=== PATIENT | female | born 1975 | race African-American/Black ===

== ENCOUNTER 2016-12-17 21:09 | Emergency (ER) | payer SELFPAY ==
[2016-12-17] MEDS ORDERED: MORPHINE SULFATE 10 MG/ML INJ IV ONE (23:12)
[2016-12-17] MEDS ORDERED: NORMAL SALINE 1000 ML 1,000 ML IV ONE (23:12)
[2016-12-17] MEDS ORDERED: ONDANSETRON HCL INJ/PF 4 MG/2 ML SDV IV ONE (23:12)
[2016-12-17] MEDS ORDERED: METOCLOPRAMIDE HCL INJ/PF 10 MG/2 ML SDV IV ONE (23:17)
[2016-12-17] MEDS ORDERED: DIPHENHYDRAMINE HCL 50 MG/ML VIAL IV ONE (23:17)
--- NOTE | 2016-12-17 23:44 | RADIOLOGY REPORT (SQ) ---
EXAM DESCRIPTION: CT HEAD WITHOUT COMPLETED DATE/TIME: 12/17/2016 11:25 pm REASON FOR STUDY: headache COMPARISON: None. TECHNIQUE: Axial images acquired through the brain without intravenous contrast. Images reviewed wi th bone, brain and subdural windows. Images stored on PACS. All CT scanners at this facility use dose modulation, iterative reconstruction, and/or weight based d osing when appropriate to reduce radiation dose to as low as reasonably achievable (ALARA). [facility]: Dose Right [facility]: CareDose [facility]: Dose Right [facility]: Teradose 4D [facility]: Stickybits RADIATION DOSE: Up-to-date CT equipment and radiation dose reduction techniques were employed. CTDIv ol: 64.6 mGy. DLP: 1163 mGy-cm. mGy. LIMITATIONS: None. FINDINGS: VENTRICLES: Normal size and contour. CEREBRUM: No masses. No hemorrhage. No midline shift. No evidence for acute infarction. Normal gra y/white matter differentiation. No areas of low density in the white matter. CEREBELLUM: No masses. No hemorrhage. No alteration of density. No evidence for acute infarction. EXTRAAXIAL SPACES: No fluid collections. No masses. ORBITS AND GLOBE: No intra- or extraconal masses. Normal contour of globe without masses. CALVARIUM: No fracture. PARANASAL SINUSES: No fluid or mucosal thickening. SOFT TISSUES: No mass or hematoma. OTHER: No other significant finding. IMPRESSION: NORMAL BRAIN CT WITHOUT CONTRAST. EVIDENCE OF ACUTE STROKE: NO. COMMENT: Quality ID # [id number]: Final reports with documentation of one or more dose reduction techniques (e.g., Automated exposure control, adjustment of the mA and/or kV according to patient size, use of iterative reconstruction technique) TECHNICAL DOCUMENTATION: JOB ID: [id number] [employer]- All Rights Reserved
--- NOTE | 2016-12-18 01:12 | ER Document Report ---
ED General - General Chief Complaint: Headache Stated Complaint: HEADACHE Time Seen by Provider: 12/17/16 23:06 Notes: Patient is a 41-year-old female presents with complaint of a headache. She woke up this morning with a headache. It has continued throughout the day. She took qdyl-bqh-prbdllk medication at home which has not helped. She has a history of some headaches but says usually not this severe. She denies any photophobia. Some nausea. No recent fevers or infections. No trauma to her head. She says the headache is located over left temporal region. No pain to the neck or back of the head. No focal weakness or numbness in extremities. No ataxia. No other complaints at this time. She is not on blood thinners. TRAVEL OUTSIDE OF THE [place] IN LAST 30 DAYS: No - Related Data Allergies/Adverse Reactions: Sulfa (Sulfonamide Antibiotics) Allergy (Verified 12/17/16 21:45) Past Medical History - Social History Smoking Status: Unknown if Ever Smoked Frequency of alcohol use: None Drug Abuse: None Family History: CAD, COPD, CVA, Hyperlipidemia, Hypertension, Malignancy. denies: Arthritis, DM, Thyroid Disfunction Patient has suicidal ideation: No Patient has homicidal ideation: No Renal/ Medical History: Reports: Hx Ovarian Cysts. Denies: Hx Peritoneal Dialysis GI Medical History: Reports: Hx Gastroesophageal Reflux Disease. Denies: Hx Colonoscopy, Hx Endoscopy Musculoskeltal Medical History: Reports Hx Arthritis, Reports Hx Musculoskeletal Deformity, Reports Hx Musculoskeletal Trauma Skin Medical History: Reports Hx Cellulitis Psychiatric Medical History: Reports: Hx Anxiety Past Surgical History: Reports: Hx Abdominal Surgery - Gallstones removed Review of Systems - Review of Systems Notes: My Normal Review Basic REVIEW OF SYSTEMS: CONSTITUTIONAL : Denies fever, chills, or sweats. Denies recent illness. EENT: Denies eye, ear, throat, or mouth pain or symptoms. Denies nasal or sinus congestion. RESPIRATORY: Denies cough, cold, or chest congestion. Denies shortness of breath, difficulty breathing, or wheezing. GASTROINTESTINAL: Denies abdominal pain. Some Nausea. MUSCULOSKELETAL: Denies neck or back pain or joint pain or swelling. SKIN: Denies rash or skin lesions. HEMATOLOGIC : Denies easy bruising or bleeding. NEUROLOGICAL: Denies altered mental status or loss of consciousness. Has a headache. Denies weakness or paralysis or loss of use of either side. Denies problems with gait or speech. Denies sensory or motor loss. ALL OTHER SYSTEMS REVIEWED AND NEGATIVE. Physical Exam - Vital signs Vitals: Temp Pulse Resp BP Pulse Ox 98.1 F 87 16 118/74 99 12/17/16 21:45 12/17/16 21:45 12/17/16 21:45 12/17/16 21:45 12/17/16 21:45 - Notes Notes: General Appearance: Well nourished, alert, cooperative, no acute distress, moderate obvious discomfort. Vitals: reviewed, See vital signs table. Head: no swelling or tenderness to the head Eyes: PERRL, EOMI, Conjuctiva clear Mouth: No decreasd moisture Throat: No tonsillar inflammation, No airway obstruction, No lymphadenopathy Neck: Supple, no neck tenderness Lungs: No wheezing, No rales, No rhonci, No accessory muscle use, good air exchange bilaterally. Heart: Normal rate, Regular rythm, No murmur, no rub Abdomen: Normal BS, soft, No rigidity, No abdominal tenderness, No guarding, no rebound, no abdominal masses, no organomegaly Extremities: strength 5/5 in all extremities, good pulses in all extremities, no swelling or tenderness in the extremities, no edema. Skin: warm, dry, appropriate color, no rash Neuro: speech clear, oriented x 3, normal affect, responds appropriately to questions. Cranial nerves II through XII are intact. Distal sensation intact. Patient moves all extremities without difficulty. Normal gait. Normal Romberg. Course - Re-evaluation Re-evalutation: 12/18/16 06:17 CT scan was obtained was negative. Patient's headache completely resolved with Reglan and Benadryl. I talked her length about the possibility of subarachnoid hemorrhage. Informed her that her presentation is atypical for subarachnoid however the headache that she is having now is not typical of her usual headaches and therefore is still possibly that this could be a subarachnoid hemorrhage. I informed her that CT scan more than 6 hours out is not very sensitive for subarachnoid hemorrhage. I informed her that other studies such as CT of the head and lumbar puncture would be more sensitive. Informed her lumbar puncture is a one test that is close to 100% sensitive. Informed her that I recommend further testing. Explained to the risks and benefits of lumbar puncture as well as CTA. Patient says she does not want to go further with any testing. She does understand that subarachnoid hemorrhage is a ruptured aneurysm and this could lead to potential . Encouraged patient to return to ER immediately if she has recurrent worsening headache, vomiting, fevers, or feels unwell. Explained this to the as well and he is completely understanding of this and said he would bring her back immediately if she had any recurrent headache. Patient will be discharged home as she requests. Patient is awake and alert and appropriate and has her own decision- making capability. Dictation of this chart was performed using voice recognition software; therefore, there may be some unintended grammatical errors. 12/18/16 06:18 - Vital Signs Vital signs: Temp Pulse Resp BP Pulse Ox 98.1 F 74 17 122/75 100 12/17/16 21:45 12/18/16 01:48 12/18/16 01:48 12/18/16 01:48 12/18/16 01:48 Discharge - Discharge Clinical Impression: Headache Qualifiers: Headache type: unspecified Headache chronicity pattern: acute headache Intractability: not intractable Qualified Code(s): R51 - Headache Condition: Good Disposition: HOME, SELF-CARE Additional Instructions: Your CT scan of your head was negative for any bleeding. As discussed with you this means that it is unlikely that you have any bleeding in your brain however , CT scan alone is not 100% in ruling out a Subarachnoid bleed or a bleeding aneurysm. We recommend further testing such as a CT angiogram of your head or a lumbar puncture. We respect your decision to refuse these tests at this time , but we strongly recommend that you return to the ER immediately if you develop recurrent headaches, vomiting, or feel unwell as any bleeding on your brain can be life threatening. please follow up with your doctor on Tuesday for reevaluation.
[2016-12-18 01:50] VITALS: BP 122/75
== END 2016-12-18 01:48 | disposition home or self-care (01) ==
LOC: ER 21:09
DX: R51 Headache (principal); R11.0 Nausea; Z88.2 Allergy status to sulfonamides
CPT/HCPCS: 99283; 96361; 96374; 96375; 70450; J1200; J2765; J7030

== ENCOUNTER → 2017-01-11 | Outpatient (CLI) | payer MEDICAID | LOC: LAB 10:13 | PROVIDERS: ATTEND Nurse Practitioner Family | DX: Z86.14 Personal history of Methicillin resistant Staphylococcus aureus infection (principal) | CPT/HCPCS: 87070 ==

== ENCOUNTER → 2017-02-02 | Outpatient (CLI) | payer MEDICAID ==
--- NOTE | 2017-02-02 12:45 | RADIOLOGY REPORT (SQ) ---
EXAM DESCRIPTION: WRIST RIGHT 3 VIEWS COMPLETED DATE/TIME: 02/02/2017 12:21 pm REASON FOR STUDY: PAIN IN RIGHT WRIST M25.531 PAIN IN RIGHT WRIST COMPARISON: None. NUMBER OF VIEWS: Three views. TECHNIQUE: AP, lateral, and oblique radiographic images acquired of the right wrist. LIMITATIONS: None. FINDINGS: MINERALIZATION: Normal. BONES: No acute fracture or dislocation. No worrisome bone lesions. Normal alignment. No significant arthritic changes. JOINTS AND SOFT TISSUES: No swelling. No calcifications. No foreign bodies. OTHER: No other significant finding. IMPRESSION: NEGATIVE STUDY OF THE RIGHT WRIST. NO ACUTE POST-TRAUMATIC FINDINGS. NO EXPLANATION FOR PAIN. TECHNICAL DOCUMENTATION: JOB ID: [id number] [employer]- All Rights Reserved
== END ==
LOC: OD 12:02
PROVIDERS: ATTEND Family Medicine
DX: M25.531 Pain in right wrist (principal)

== ENCOUNTER → 2017-04-14 | Outpatient (CLI) | payer MEDICAID ==
[2017-04-14 11:19] LABS: BACTERIA (WET MOUNT) 4+ BACTERIA SEEN; EPITHELIALS (WET MOUNT) 4+ EPITHELIALS SEEN; T.VAGINALIS (WET MOUNT) NO TRICHOMONAS SEEN; WBCS (WET MOUNT) FEW WBCS SEEN; YEAST (WET MOUNT) NO YEAST SEEN
[2017-04-14 12:49] LABS: CHLAM PCR NOT DETECTED (NOT DETECT); GON PCR NOT DETECTED (NOT DETECT)
== END ==
LOC: LAB 11:11
PROVIDERS: ATTEND Nurse Practitioner Acute Care
DX: N89.8 Other specified noninflammatory disorders of vagina (principal); R30.0 Dysuria
CPT/HCPCS: 87086; 87088; 87186; 87210; 87491; 87591

== ENCOUNTER → 2017-04-27 | Outpatient (CLI) | payer MEDICAID ==
--- NOTE | 2017-04-29 18:45 | WOMENS IMAGING REPORT ---
EXAM DESCRIPTION: BILAT DIAGNOSTIC MAMMO W/CAD COMPLETED DATE/TIME: 04/27/2017 11:30 am REASON FOR STUDY: LEFT BREAST LUMP N63.20 UNSPECIFIED LUMP IN THE LEFT BREAST, UNSPECIFIED QUAD COMPARISON: None available. TECHNIQUE: Standard craniocaudal and mediolateral oblique views of each breast recorded using digita l acquisition. Additional left breast 90 mediolateral view LIMITATIONS: None. FINDINGS: RIGHT BREAST MASSES: No suspicious masses. CALCIFICATIONS: No new or suspicious calcifications. ARCHITECTURAL DISTORTION: None. DEVELOPING DENSITY: None. ASYMMETRY: None noted. OTHER: No other significant findings. LEFT BREAST MASSES: No suspicious masses. CALCIFICATIONS: No new or suspicious calcifications. ARCHITECTURAL DISTORTION: None. DEVELOPING DENSITY: None. ASYMMETRY: None noted. OTHER: No other significant finding. Read with the assistance of CAD: .[facility] - R2 Cenova Version 1.3 .[facility] Imaging - R2 Cenova Version 1.3 .[facility] - R2 Cenova Version 2.4 .[facility] - R2 Cenova Version 2.4 .[facility] - R2 Collar Setter Overlock Version 9.2 IMPRESSION: No mammographic findings worrisome for malignancy. Patient indicated a palpable abnorma lity. Ultrasound is recommended for further evaluation of any focal palpable findings on the left si de. Prior mammograms from [place] in 2016 are not available. She indicates she had left breast findings at that time which were not followed up. When the prior films arrive, an addendum to this report ca n be generated BREAST DENSITY: b. There are scattered areas of fibroglandular density. BIRAD: 0 Incomplete: Needs additional imaging evaluation and/or prior mammograms for comparison. RECOMMENDATION: RECOMMENDED FOLLOW UP: Left breast ultrasound. SPECIFIC INTERVENTION/IMAGING/CONSULTATION RECOMMENDED:Left breast ultrasound COMMUNICATION:Patient will be contacted for further left breast imaging. We will also obtain outside films from 2016 if possible COMMENT: The patient has been notified of the results by letter per [facility] requirements. Additional no tification policies are in place for contacting patient with suspicious or incomplete findings. Quality ID #[id number]: The [employer] recommends an annual screening mammogram for women aged 40 years or over. This facility utilizes a reminder system to ensure that all patients receive reminder letters, and/or direct phone calls for appointments. This includes reminders for routine scr eening mammograms, diagnostic mammograms, or other Breast Imaging Interventions when appropriate. Th is patient will be placed in the appropriate reminder system. The [employer] (ACR) has developed recommendations for screening MRI of the breast s in certain patient populations, to be used in conjunction with mammography. Breast MRI surveillanc e may be appropriate for women with more than 20% lifetime risk of developing breast cancer as deter mined by genetic testing, significant family history of the disease, or history of mantle radiation f or Hodgkins Disease. ACR Practice Guidelines 2008. TECHNICAL DOCUMENTATION: FINDING NUMBER: (1) ASSESSMENT: (1) JOB ID: [id number] [employer]- All Rights Reserved Reading location - IP/workstation name: [facility]-RR2
== END ==
LOC: WI 10:51
PROVIDERS: ATTEND Family Medicine
DX: N63.20 Unspecified lump in the left breast, unspecified quadrant (principal)
CPT/HCPCS: 77066

== ENCOUNTER 2017-05-29 00:12 | Emergency (ER) | payer MEDICAID ==
[2017-05-29] MEDS ORDERED: LORAZEPAM INJ 2 MG/1 ML VIAL IV ONE (00:25)
[2017-05-29] MEDS ORDERED: LIDOCAINE 5% (700 MG) TRANSDERMAL ADH..PATCH TP ONE (00:25)
[2017-05-29] MEDS ORDERED: KETOROLAC TROMETHAMINE INJ/PF 30 MG/1 ML SDV IV ONE (00:25)
--- NOTE | 2017-05-29 00:25 | ER Document Report ---
ED General - General Stated Complaint: CHEST PAIN Time Seen by Provider: 05/29/17 00:19 Notes: Patient is a 42-year-old female without chronic medical problems, current every day tobacco smoker who presents with 1 week of left-sided chest pain. The patient describes it as a stabbing, constant pain that is worsened when she has anxiety. Nothing improves her pain. She has a history of similar symptoms in the past when she lived in [place] when she had anxiety. She states that she saw her primary care doctor regarding this complaint yesterday, was diagnosed with anxiety and started on an antidepressant. No EKG or further workup was done per the patient's report. She denies any known history of cardiac disease , PE, DVT, or aortic pathology. Nothing is new or different about her pain today that prompted a visit to the emergency department. She denies any associated shortness of breath, diaphoresis or vomiting. TRAVEL OUTSIDE OF THE [place] IN LAST 30 DAYS: No - Related Data Allergies/Adverse Reactions: Sulfa (Sulfonamide Antibiotics) Allergy (Verified 12/17/16 21:45) Past Medical History - General Information source: Patient - Social History Smoking Status: Current Every Day Smoker Frequency of alcohol use: None Drug Abuse: None Lives with: Family Family History: CAD, COPD, CVA, Hyperlipidemia, Hypertension, Malignancy Renal/ Medical History: Reports: Hx Ovarian Cysts. Denies: Hx Peritoneal Dialysis GI Medical History: Reports: Hx Gastroesophageal Reflux Disease. Denies: Hx Colonoscopy, Hx Endoscopy Musculoskeltal Medical History: Reports Hx Arthritis, Reports Hx Musculoskeletal Deformity, Reports Hx Musculoskeletal Trauma Skin Medical History: Reports Hx Cellulitis Psychiatric Medical History: Reports: Hx Anxiety Past Surgical History: Reports: Hx Abdominal Surgery - Gallstones removed Review of Systems - Review of Systems Notes: Constitutional: Negative for fever. HENT: Negative for sore throat. Eyes: Negative for visual changes. Cardiovascular: Positive for chest pain. Respiratory: Negative for shortness of breath. Gastrointestinal: Negative for abdominal pain, vomiting or diarrhea. Genitourinary: Negative for dysuria. Musculoskeletal: Negative for back pain. Skin: Negative for rash. Neurological: Negative for headaches, weakness or numbness. 10 point ROS negative except as marked above and in HPI. Physical Exam - Vital signs Vitals: Resp Pulse Ox 10 L 97 05/29/17 00:25 05/29/17 00:25 Interpretation: Normal Notes: PHYSICAL EXAMINATION: GENERAL: Well-appearing, well-nourished and in no acute distress. HEAD: Atraumatic, normocephalic. EYES: Pupils equal round and reactive to light, extraocular movements intact, sclera anicteric, conjunctiva are normal. ENT: nares patent, oropharynx clear without exudates. Moist mucous membranes. NECK: Normal range of motion, supple without lymphadenopathy LUNGS: Breath sounds clear to auscultation bilaterally and equal. No wheezes rales or rhonchi. HEART: Regular rate and rhythm without murmurs Chest wall: Reproduction of pain on palpation of the central left chest wall ABDOMEN: Soft, nontender, normoactive bowel sounds. No guarding, no rebound. No masses appreciated. EXTREMITIES: Normal range of motion, no pitting or edema. No cyanosis. NEUROLOGICAL: No focal neurological deficits. Moves all extremities spontaneously and on command. PSYCH: Mildly anxious SKIN: Warm, Dry, normal turgor, no rashes or lesions noted. Course - Re-evaluation Re-evalutation: 05/29/17 00:24 Presentation of chest pain in an otherwise well appearing patient. Low clinical suspicion for ACS given clinical history, exam, EKG without ST elevations or depressions, and negative initial troponin. HEART score less than or equal to 3. PE also seems unlikely given clinical history, absence of tachycardia or dyspnea. Patient is PERC criteria negative. CXR without evidence of pneumothorax or pneumonia. No widened mediastinum. Aortic dissection also seems unlikely given history, symmetric pulses, CXR, and vitals. Patient's pain has been ongoing for over 1 week and I do not believe serial cardiac markers are indicated. Regions pain is likewise reproducible on examination and suggests a likely musculoskeletal origin of her pain is possible anxiety as patient does note that her pain worsens when she becomes quite anxious. Overall assessment: Chest pain in a patient without evidence of cardiac or other serious etiology on workup today. I discussed with patient that, based on their age, risk factors and emergency department testing today, the likelihood that their symptoms are related to a heart attack is very low (estimated risk of heart attack or over the next 30 days of less than 1%). The patient demonstrates decision making capacity and has verbalized an understanding of these risks to me. Based on this, the patient has chosen to follow-up as an outpatient. Usual chest pain return precautions reviewed. The patient states understanding and agreement with this plan. - Vital Signs Vital signs: Temp Pulse Resp BP Pulse Ox 22 H 115/64 97 05/29/17 01:40 05/29/17 01:40 05/29/17 01:40 - Laboratory Result Diagrams: 05/29/17 00:26 05/29/17 00:26 - Diagnostic Test Radiology reviewed: Image reviewed, Reports reviewed Radiology results interpreted by me: 05/29/17 00:40 Chest x-ray: No acute infiltrate or pneumothorax - EKG Interpretation by Me Additional EKG results interpreted by me: 05/29/17 00:40 Sinus rhythm. Rate 91. No ST elevations or depressions. QTC is 434. Discharge - Discharge Clinical Impression: Chest pain Qualifiers: Chest pain type: unspecified Qualified Code(s): R07.9 - Chest pain, unspecified Condition: Good Disposition: HOME, SELF-CARE Additional Instructions: You were seen today for chest pain. The exact cause of your pain is unclear. However, based on your cardiac enzyme testing, chest x-ray, and EKG it does not appear that it is from an immediately life-threatening cause at this time. Although your testing here is normal is critical that you follow-up with your primary care physician for continued evaluation of this chest pain and possible stress testing. I recommended you see your physician within the next 24-48 hours to be evaluated for consideration of a stress test. Please return to emergency department immediately if you have worsening of your chest pain, shortness of breath, vomiting, become unable to exert yourself due to pain or difficulty breathing, you pass out, or have any pain that radiates into your arms, jaw, or back. Please also return if you have any additional symptoms that are concerning to you.
[2017-05-29 00:34] LABS: HEMATOCRIT 39.4 % (36.0-47.0); HEMOGLOBIN 13.4 g/dL (12.0-15.5); MEAN CORPUSCULAR HEMOGLOBIN 32.2 pg (27.0-33.4); MEAN CORPUSCULAR HGB CONC 33.9 g/dL (32.0-36.0); MEAN CORPUSCULAR VOLUME 95 fl (80-97); PLATELET COUNT 245 10^3/uL (150-450); RED BLOOD COUNT 4.15 10^6/uL (3.72-5.28); RED CELL DISTRIBUTION WIDTH 12.7 % (11.5-14.0); WHITE BLOOD COUNT 7.7 10^3/uL (4.0-10.5)
[2017-05-29 00:58] LABS: ANION GAP 13 (5-19); BLOOD UREA NITROGEN 7 mg/dL (7-20); CALCIUM 9.7 mg/dL (8.4-10.2); CARBON DIOXIDE 25 mmol/L (22-30); CHLORIDE 107 mmol/L (98-107); GLUCOSE 110 mg/dL (75-110); POTASSIUM 4.4 mmol/L (3.6-5.0); SODIUM 144.7 mmol/L (137-145)
--- NOTE | 2017-05-29 02:04 | RADIOLOGY REPORT (SQ) ---
EXAM DESCRIPTION: CHEST SINGLE VIEW CLINICAL HISTORY: chest pain COMPARISON: None. FINDINGS: Single frontal view of the chest. The cardiomediastinal silhouette has normal size and contour. No consolidation, pneumothorax, or pleural effusion. Leads overlie the chest. No displaced rib fractures identified. Upper abdominal soft tissues are unremarkable. IMPRESSION: 1. No acute pulmonary process identified.
[2017-05-29 02:36] VITALS: BP 114/72
--- NOTE | 2017-05-29 09:40 | EKG REPORT ---
SEVERITY:- NORMAL ECG - SINUS RHYTHM : Confirmed by: Ashli Stuart 29-May-2017 09:39:42
== END 2017-05-29 02:53 | disposition home or self-care (01) ==
LOC: ER 00:12
DX: R07.9 Chest pain, unspecified (principal); F17.200 Nicotine dependence, unspecified, uncomplicated
CPT/HCPCS: 93005; 99284; 96374; 96375; 36415; 85027; 80048; 84484; 71045; 93010; J1885; J2060; J3490

== ENCOUNTER 2017-07-04 15:09 | Emergency (ER) | payer MEDICAID ==
[2017-07-04] MEDS ORDERED: ACETAMINOPHEN 325 MG TABLET PO ONE (15:13)
[2017-07-04 15:17] VITALS: BP 123/65
--- NOTE | 2017-07-04 15:19 | ER Document Report ---
HPI - HPI Patient complains to provider of: leg pain Onset: Other - 1 week ago Quality of pain: Achy, Stabbing Pain Level: 4 Context: 42 yo female felt a pop in posterior right calf muscle while she was chasing someone last week. swelled and now has bruising in the right anle which was not injured. No hx PE/DVT, no recent travel or surgery, no hormones. No chest pain or sob. Associated Symptoms: None Relieved by: Denies Similar symptoms previously: No Recently seen / treated by doctor: No - ROS ROS below otherwise negative: Yes Systems Reviewed and Negative: Yes All other systems reviewed and negative Past Medical History - General Information source: Patient - Social History Smoking Status: Current Every Day Smoker Frequency of alcohol use: None Drug Abuse: None Lives with: Spouse/Significant other Family History: CAD, COPD, CVA, Hyperlipidemia, Hypertension, Malignancy Renal/ Medical History: Reports: Hx Ovarian Cysts. Denies: Hx Peritoneal Dialysis GI Medical History: Reports: Hx Gastroesophageal Reflux Disease Musculoskeltal Medical History: Reports Hx Arthritis, Reports Hx Musculoskeletal Deformity, Reports Hx Musculoskeletal Trauma Skin Medical History: Reports Hx Cellulitis Psychiatric Medical History: Reports: Hx Anxiety Past Surgical History: Reports: Hx Abdominal Surgery - Gallstones removed Vertical Provider Document - CONSTITUTIONAL Agree With Documented VS: Yes Exam Limitations: No Limitations General Appearance: No Apparent Distress - INFECTION CONTROL TRAVEL OUTSIDE OF THE [place] IN LAST 30 DAYS: No - HEENT HEENT: Normocephalic - MUSCULOSKELETAL/EXTREMETIES Musculoskeletal/Extremeties: MAEW, FROM, Tender - over faint exxhymosis mid posterio right thigh, non tender exxymosis right anle, mild swelling - NEURO Level of Consciousness: Awake Motor/Sensory: No Motor Deficit, No Sensory Deficit - DERM Integumentary: No Rash Course - Re-evaluation Re-evalutation: 07/04/17 dr ruiz agrees with dx after his exam. - Vital Signs Vital signs: Temp Pulse Resp BP Pulse Ox 99.1 F 72 14 123/65 98 07/04/17 15:16 07/04/17 15:16 07/04/17 15:16 07/04/17 15:16 07/04/17 15:16 Discharge - Discharge Clinical Impression: Right calf muscle fiber tear, Dependent ecchymosis Condition: Good Disposition: HOME, SELF-CARE Instructions: Acetaminophen, Ibuprofen (General) ([facility]), Muscle Strain ([facility]), Myalagia (Muscle Pain) ([facility]) Additional Instructions: Warm compress Motrin Tylenol Did not overstretched the calf muscle while the muscle is repairing itself Return to the emergency room if symptoms worsen Prescriptions: Ibuprofen [Motrin 800 mg Tablet] 800 mg PO Q8HP PRN #30 tablet PRN Reason:
== END 2017-07-04 15:45 | disposition home or self-care (01) ==
LOC: ER 15:09
DX: S86.111A Strain of other muscle(s) and tendon(s) of posterior muscle group at lower leg level, right leg, initial encounter (principal); S90.01XA Contusion of right ankle, initial encounter; S70.11XA Contusion of right thigh, initial encounter; M79.604 Pain in right leg; M79.89 Other specified soft tissue disorders; X58.XXXA Exposure to other specified factors, initial encounter; F17.200 Nicotine dependence, unspecified, uncomplicated
CPT/HCPCS: 99283; J3490

== ENCOUNTER 2017-12-21 16:25 | Emergency (ER) | payer MEDICAID ==
--- NOTE | 2017-12-21 16:59 | ER Document Report ---
ED Medical Screen (RME) - General Chief Complaint: Abdominal Pain Stated Complaint: ABDOMINAL PAIN Time Seen by Provider: 12/21/17 16:54 Notes: 42 years old female with no significant past medical history presents today with left lower quadrant abdominal pain for the last 2 days. No fever chills nausea vomiting. Denies any dysuria frequency urgency. On examination-left lower quadrant abdominal tenderness noted. When examined while she was standing up inguinal region questionable bulging hernia on coughing. TRAVEL OUTSIDE OF THE [place] IN LAST 30 DAYS: No - Related Data Allergies/Adverse Reactions: Sulfa (Sulfonamide Antibiotics) Allergy (Verified 07/04/17 15:10) Past Medical History Renal/ Medical History: Reports: Hx Ovarian Cysts. Denies: Hx Peritoneal Dialysis GI Medical History: Reports: Hx Gastroesophageal Reflux Disease. Denies: Hx Colonoscopy, Hx Endoscopy Musculoskeltal Medical History: Reports Hx Arthritis, Reports Hx Musculoskeletal Deformity, Reports Hx Musculoskeletal Trauma Skin Medical History: Reports Hx Cellulitis Psychiatric Medical History: Reports: Hx Anxiety Past Surgical History: Reports: Hx Abdominal Surgery - Gallstones removed Physical Exam - Vital signs Vitals: Temp Pulse Resp BP Pulse Ox 98.6 F 91 15 132/63 H 99 12/21/17 16:28 12/21/17 16:28 12/21/17 16:28 12/21/17 16:28 12/21/17 16:28 Course - Vital Signs Vital signs: Temp Pulse Resp BP Pulse Ox 98.6 F 91 15 132/63 H 99 12/21/17 16:28 12/21/17 16:28 12/21/17 16:28 12/21/17 16:28 12/21/17 16:28 Doctor's Discharge - Discharge Referrals: GINA PRINCE PA-C [Primary Care Provider] - Follow up as needed
[2017-12-21 17:26] LABS: ABSOLUTE EOSINOPHILS # (AUTO) 0.3 10^3/uL (0.0-0.6); ABSOLUTE LYMPHOCYTES (AUTO) 2.4 10^3/uL (0.5-4.7); ABSOLUTE MONOCYTES (AUTO) 0.5 10^3/uL (0.1-1.4); ABSOLUTE NEUT (AUTO) 2.9 10^3/uL (1.7-8.2); BASOPHILS % (AUTO) 0.2 % (0-2); EOSINOPHILS % (AUTO) 4.3 % (0-6); HEMATOCRIT 40.2 % (36.0-47.0); HEMOGLOBIN 13.6 g/dL (12.0-15.5); LYMPHOCYTES % (AUTO) 39.5 % (13-45); MEAN CORPUSCULAR HEMOGLOBIN 32.5 pg (27.0-33.4); MEAN CORPUSCULAR HGB CONC 33.8 g/dL (32.0-36.0); MEAN CORPUSCULAR VOLUME 96 fl (80-97); MONOCYTES % (AUTO) 8.6 % (3-13); PLATELET COUNT 233 10^3/uL (150-450); RED BLOOD COUNT 4.18 10^6/uL (3.72-5.28); RED CELL DISTRIBUTION WIDTH 13.1 % (11.5-14.0); SEGMENTED NEUTROPHILS % (AUTO) 47.4 % (42-78); TOTAL CELLS COUNTED % (AUTO) 100 %; WHITE BLOOD COUNT 6.1 10^3/uL (4.0-10.5)
[2017-12-21 17:32] LABS: APPEARANCE,URINE CLOUDY; BILIRUBIN,URINE NEGATIVE (NEGATIVE); COLOR,URINE YELLOW; GLUCOSE, URINE NEGATIVE (NEGATIVE); KETONES,URINE NEGATIVE (NEGATIVE); LEUKOCYTE ESTERASE,URINE NEGATIVE (NEGATIVE); NITRITE,URINE NEGATIVE (NEGATIVE); PROTEIN,URINE 30 mg/dL (NEGATIVE)
[2017-12-21 17:45] LABS: ALANINE AMINOTRANSFERASE 17 U/L (9-52); ALBUMIN 4.4 g/dL (3.5-5.0); ALKALINE PHOSPHATASE 59 U/L (38-126); ANION GAP 12 (5-19); ASPARTATE AMINO TRANSFERASE 20 U/L (14-36); BILIRUBIN,DIRECT 0.2 mg/dL (0.0-0.4); BILIRUBIN,TOTAL 1.5 mg/dL (0.2-1.3); BLOOD UREA NITROGEN 12 mg/dL (7-20); CALCIUM 9.6 mg/dL (8.4-10.2); CARBON DIOXIDE 26 mmol/L (22-30); CHLORIDE 106 mmol/L (98-107); GLUCOSE 135 mg/dL (75-110); SODIUM 144.1 mmol/L (137-145); TOTAL PROTEIN 7.6 g/dL (6.3-8.2)
--- NOTE | 2017-12-21 18:13 | ER Document Report ---
ED General - General Chief Complaint: Abdominal Pain Stated Complaint: ABDOMINAL PAIN Time Seen by Provider: 12/21/17 16:54 Notes: Patient is a 42-year-old female that presents to the emergency department for chief complaint of abdominal pain. Patient states the pain started 2 days ago, and has been persistent and seemingly worsening over time. The pain is located left lower quadrant of the abdomen, and they currently rate the pain as a 7 out of 10, and described as aching, and constant. They have had associated diarrhea , but denies nausea, vomiting, fevers, chills, night sweats, chest pain or shortness of breath. Past Medical History: Depression, chronic low back pain Past Surgical History: Low back surgery, cholecystectomy Social History: Admits to smoking cigarettes daily, denies alcohol or drug use Family History: Reviewed and noncontributory for presenting illness Allergies: Reviewed, see documented allergy list. REVIEW OF SYSTEMS: Other than noted above, the 12 point review of systems was reviewed with the patient and were negative, all pertinent findings are included in the HPI. PHYSICAL EXAMINATION: Vital signs reviewed, nursing noted reviewed. GENERAL: Well-appearing, well-nourished and appears uncomfortable HEAD: Atraumatic, normocephalic. EYES: Eyes appear normal, extraocular movements intact, sclera anicteric, conjunctiva are normal. ENT: nares patent, oropharynx clear without exudates. Moist mucous membranes. NECK: Normal range of motion, supple without lymphadenopathy LUNGS: Breath sounds clear to auscultation bilaterally and equal. No wheezes rales or rhonchi. HEART: Regular rate and rhythm without murmurs ABDOMEN: Soft, normal bowel sounds, tenderness with palpation in the left lower quadrant, No rebound, guarding, or rigidity. No masses appreciated. EXTREMITIES: Nontender, good range of motion, no pitting or edema. NEUROLOGICAL: No focal neurological deficits. Moves all extremities spontaneously Motor and sensory grossly intact on exam. PSYCH: Normal mood, normal affect. SKIN: Warm, Dry, normal turgor, no rashes or lesions noted on exposed skin TRAVEL OUTSIDE OF THE [place] IN LAST 30 DAYS: No - Related Data Allergies/Adverse Reactions: Sulfa (Sulfonamide Antibiotics) Allergy (Verified 12/21/17 17:03) Past Medical History - Social History Smoking Status: Current Every Day Smoker Chew tobacco use (# tins/day): No Frequency of alcohol use: None Drug Abuse: None Family History: CAD, COPD, CVA, Hyperlipidemia, Hypertension, Malignancy Patient has suicidal ideation: No Patient has homicidal ideation: No Renal/ Medical History: Reports: Hx Ovarian Cysts. Denies: Hx Peritoneal Dialysis GI Medical History: Reports: Hx Gastroesophageal Reflux Disease. Denies: Hx Colonoscopy, Hx Endoscopy Musculoskeletal Medical History: Reports Hx Arthritis, Reports Hx Musculoskeletal Deformity, Reports Hx Musculoskeletal Trauma Skin Medical History: Reports Hx Cellulitis Psychiatric Medical History: Reports: Hx Anxiety Past Surgical History: Reports: Hx Abdominal Surgery - Gallstones removed Physical Exam - Vital signs Vitals: Temp Pulse Resp BP Pulse Ox 98.6 F 91 15 132/63 H 99 12/21/17 16:28 12/21/17 16:28 12/21/17 16:28 12/21/17 16:28 12/21/17 16:28 Course - Re-evaluation Re-evalutation: Patient seen and examined vital signs reviewed. Laboratory data and imaging were ordered as appropriate for the patient's presenting symptoms and complaint, with consideration of any critical or life threatening conditions that may be associated with their obtained history and exam as noted above. Patient was treated with IV morphine and Zofran. Results were reviewed when available and demonstrated unremarkable blood work and urinalysis, the CT demonstrated a small adnexal cyst, possibly causing some of the patient's pain The patient was re-evaluated and was improved and stable Evaluation was most consistent with left ovarian cyst, left lower quadrant abdominal pain, I encouraged the patient to continue taking her twice daily naproxen, will provide her with a [place] dispense pack of 6 tablets to take for breakthrough pain, and to follow-up with her primary care physician to get referral to [facility]. Patient was agreeable to plan of care. Results were discussed with the patient at this point, after careful consideration I feel that that patient can be discharged from the emergency department, the patient was educated treatments and reasons to return to the emergency department based on their presumed diagnosis as noted above, they were advised to followup with a primary care physician in 2-3 days. Patient was agreeable to plan of care. *Note is created using voice recognition software and may contain spelling, syntax or grammatical errors. Laboratory 12/21/17 12/21/17 12/21/17 17:11 17:11 17:11 WBC 6.1 RBC 4.18 Hgb 13.6 Hct 40.2 MCV 96 MCH 32.5 MCHC 33.8 RDW 13.1 Plt Count 233 Seg Neutrophils % 47.4 Lymphocytes % 39.5 Monocytes % 8.6 Eosinophils % 4.3 Basophils % 0.2 Absolute Neutrophils 2.9 Absolute Lymphocytes 2.4 Absolute Monocytes 0.5 Absolute Eosinophils 0.3 Absolute Basophils 0.0 Sodium 144.1 Potassium 4.0 Chloride 106 Carbon Dioxide 26 Anion Gap 12 BUN 12 Creatinine 0.79 Est GFR ( Amer) > 60 Est GFR (Non-Af Amer) > 60 Glucose 135 H Calcium 9.6 Total Bilirubin 1.5 H Direct Bilirubin 0.2 Neonat Total Bilirubin Not Reportable Neonat Direct Bilirubin Not Reportable Neonat Indirect Bili Not Reportable AST 20 ALT 17 Alkaline Phosphatase 59 Total Protein 7.6 Albumin 4.4 Urine Color YELLOW Urine Appearance CLOUDY Urine pH 6.0 Ur Specific [place] 1.030 Urine Protein 30 H Urine Glucose (UA) NEGATIVE Urine Ketones NEGATIVE Urine Blood NEGATIVE Urine Nitrite NEGATIVE Urine Bilirubin NEGATIVE Urine Urobilinogen 4.0 H Ur Leukocyte Esterase NEGATIVE Urine WBC (Auto) 3 Urine RBC (Auto) 2 U Hyaline Cast (Auto) 1 Urine Bacteria (Auto) TRACE Squamous Epi Cells Auto 27 Urine Mucus (Auto) MANY Urine Ascorbic Acid NEGATIVE Acute Abdomen Series 12/21/17 16:58 IMPRESSION: NO RADIOGRAPHIC EVIDENCE FOR ACUTE ABDOMINAL DISEASE. Abdomen/Pelvis CT 12/21/17 18:30 IMPRESSION: Small left adnexal cyst almost certainly benign. No additional imaging is required for this. No acute findings in the abdomen or pelvis. - Vital Signs Vital signs: Temp Pulse Resp BP Pulse Ox 98.6 F 91 15 132/63 H 99 12/21/17 16:28 12/21/17 16:28 12/21/17 16:28 12/21/17 16:28 12/21/17 16:28 - Laboratory Result Diagrams: 12/21/17 17:11 12/21/17 17:11 Laboratory results interpreted by me: 12/21/17 12/21/17 17:11 17:11 Glucose 135 H Total Bilirubin 1.5 H Urine Protein 30 H Urine Urobilinogen 4.0 H Discharge - Discharge Clinical Impression: Left ovarian cyst, Left lower quadrant pain Condition: Stable Disposition: HOME, SELF-CARE Instructions: Abdominal Pain ([facility]), Ovarian Cyst ([facility]) Additional Instructions: Please follow-up with your primary care physician, call for an appointment, to get referral to [facility]. Take medication as prescribed, and if your symptoms worsen, or do not improve, do not hesitate to return to the emergency department. Referrals: GINA PRINCE PA-C [NO LOCAL MD] - Follow up in 3-5 days
[2017-12-21] MEDS ORDERED: MORPHINE SULFATE 10 MG/ML INJ IV ONE (18:30)
[2017-12-21] MEDS ORDERED: ONDANSETRON HCL INJ/PF 4 MG/2 ML SDV IV ONE (18:30)
--- NOTE | 2017-12-21 18:55 | RADIOLOGY REPORT (SQ) ---
EXAM DESCRIPTION: ACUTE ABDOMEN SERIES COMPLETED DATE/TIME: 12/21/2017 6:36 pm REASON FOR STUDY: Abdominal pain COMPARISON: None. NUMBER OF VIEWS: Three views. TECHNIQUE: Frontal chest, supine abdomen and upright/decubitus abdomen radiographic images acquired. LIMITATIONS: None. FINDINGS: CHEST: Lungs clear of infiltrates. FREE AIR: None. No abnormal gas collections. BOWEL GAS PATTERN: Nonobstructive pattern. No dilated loops or air fluid levels. CALCIFICATIONS: No suspicious calcifications. HARDWARE: None in the abdomen. SOFT TISSUES: No gross mass or suggestion of organomegaly. BONES: No acute fracture. No worrisome bone lesions. OTHER: No other significant finding. IMPRESSION: NO RADIOGRAPHIC EVIDENCE FOR ACUTE ABDOMINAL DISEASE. TECHNICAL DOCUMENTATION: JOB ID: [id number] [employer]- All Rights Reserved Reading location - IP/workstation name: [email or web address]
--- NOTE | 2017-12-21 19:37 | RADIOLOGY REPORT (SQ) ---
EXAM DESCRIPTION: CT ABD/PELVIS WITH IV ONLY COMPLETED DATE/TIME: 12/21/2017 7:04 pm REASON FOR STUDY: llq pain COMPARISON: None. TECHNIQUE: CT scan of the abdomen and pelvis performed using helical scanning technique with dynamic intravenous contrast injection. No oral contrast. Images reviewed with lung, soft tissue, and bone windows. Reconstructed coronal and sagittal MPR images reviewed. Delayed images for evaluation of the urinary system also acquired. All images stored on PACS. All CT scanners at this facility use dose modulation, iterative reconstruction, and/or weight based d osing when appropriate to reduce radiation dose to as low as reasonably achievable (ALARA). [facility]: Dose Right [facility]: CareDose [facility]: Dose Right [facility]: Teradose 4D [facility]: DabKick CONTRAST TYPE AND DOSE: contrast/concentration: Isovue 350.00 mg/ml; Total Contrast Delivered: 99.0 ml; Total Saline Delivered: 52.0 ml RENAL FUNCTION: Not recorded here RADIATION DOSE: CT Rad equipment meets quality standard of care and radiation dose reduction techniq ues were employed. CTDIvol: 14.9 - 19.1 mGy. DLP: 1955 mGy-cm.. LIMITATIONS: None. FINDINGS: LOWER CHEST: No significant findings. No nodules or infiltrates. LIVER: Normal size. No masses. No dilated ducts. SPLEEN: Normal size. No focal lesions. PANCREAS: No masses. No significant calcifications. No adjacent inflammation or peripancreatic fluid collections. Pancreatic duct not dilated. GALLBLADDER: Surgically absent. ADRENAL GLANDS: No significant masses or asymmetry. RIGHT KIDNEY AND URETER: No solid masses. No significant calcifications. No hydronephrosis or hyd roureter. LEFT KIDNEY AND URETER: No solid masses. No significant calcifications. No hydronephrosis or hydr oureter. AORTA AND VESSELS: No aneurysm. No dissection. Renal arteries, SMA, celiac without stenosis. RETROPERITONEUM: No retroperitoneal adenopathy, hemorrhage or masses. BOWEL AND PERITONEAL CAVITY: No masses or inflammatory changes. No free fluid or peritoneal masses. APPENDIX: Not identified. PELVIS: A small left adnexal cyst is seen. No other pelvic masses are present. No free fluid. Urin sarah bladder is normal. ABDOMINAL WALL: No masses. No hernias. BONES: No significant or acute findings. OTHER: No other significant finding. IMPRESSION: Small left adnexal cyst almost certainly benign. No additional imaging is required for this. No acute findings in the abdomen or pelvis. TECHNICAL DOCUMENTATION: JOB ID: [id number] Quality ID # [id number]: Final reports with documentation of one or more dose reduction techniques (e.g., Au tomated exposure control, adjustment of the mA and/or kV according to patient size, use of iterative reconstruction technique) 2010 [employer]- All Rights Reserved Reading location - IP/workstation name: [email or web address]
[2017-12-21] MEDS ORDERED: HYDROCODONE/ACETAMINOPHEN 5-325 MG (6 TAB/ER DISP) PO PRN (19:51)
[2017-12-21 20:13] VITALS: BP 118/52
== END 2017-12-21 20:13 | disposition home or self-care (01) ==
LOC: ER 16:25
DX: N83.202 Unspecified ovarian cyst, left side (principal); R10.32 Left lower quadrant pain; R19.7 Diarrhea, unspecified; F17.210 Nicotine dependence, cigarettes, uncomplicated; M19.90 Unspecified osteoarthritis, unspecified site; Z79.1 Long term (current) use of non-steroidal anti-inflammatories (NSAID); Z90.49 Acquired absence of other specified parts of digestive tract; Z88.2 Allergy status to sulfonamides
CPT/HCPCS: 99284; 96374; 96375; 36415; 87086; 85025; 80053; 81001; 74022; 74177; J2270; J2405

== ENCOUNTER 2017-12-25 20:24 | Emergency (ER) | payer MEDICAID ==
[2017-12-25] MEDS ORDERED: ONDANSETRON HCL INJ/PF 4 MG/2 ML SDV IV ONE (21:12)
[2017-12-25] MEDS ORDERED: FAMOTIDINE INJ/PF 20 MG/2 ML SDV IV ONE (21:12)
[2017-12-25] MEDS ORDERED: MAG HYDROX/AL HYDROX/SIMETH SUSP 30 ML UDCUP PO ONE (21:13)
[2017-12-25] MEDS ORDERED: METOCLOPRAMIDE HCL ORAL SOLN 10 MG/10 ML UDCUP PO ONE (21:13)
[2017-12-25] MEDS ORDERED: MORPHINE SULFATE 10 MG/ML INJ IV ONE (21:13)
[2017-12-25] MEDS ORDERED: LIDOCAINE 2% VISCOUS SOLN 20 ML UDCUP PO ONE (21:13)
--- NOTE | 2017-12-25 21:16 | ER Document Report ---
ED General - General Chief Complaint: Abdominal Pain Stated Complaint: ABDOMINAL PAIN Time Seen by Provider: 12/25/17 21:05 Mode of Arrival: Ambulatory Information source: Patient Notes: Patient is a 42-year-old female who presents emergency department complaints of abdominal pain. Patient states that is been present for the last 6 days. Patient states that the pain was initially in the left lower quadrant. She describes it as an aching sensation. She denies any radiation of the pain. She denies any feeding or exacerbating factors. She came to the emergency department on 12/21 and was diagnosed with a left ovarian cyst. Patient had a CT of the abdomen pelvis done that showed this. She was discharged home and told to follow-up with [facility]. Patient states that she has not followed up yet. She states that she continues to have this pain. She states that now she is also having some nausea, vomiting, diarrhea, epigastric abdominal pain, dysuria. Patient denies any vaginal discharge, vaginal bleeding. TRAVEL OUTSIDE OF THE [place] IN LAST 30 DAYS: No - HPI Onset: Last week Onset/Duration: Gradual Quality of pain: Achy, Stabbing, Throbbing Associated symptoms: Diarrhea, Nausea, Vomiting Exacerbated by: Denies Relieved by: Denies Similar symptoms previously: Yes Recently seen / treated by doctor: Yes - Related Data Allergies/Adverse Reactions: Sulfa (Sulfonamide Antibiotics) Allergy (Verified 12/21/17 17:03) Past Medical History - General Information source: Patient - Social History Smoking Status: Current Every Day Smoker Family History: CAD, COPD, CVA, Hyperlipidemia, Hypertension, Malignancy Patient has suicidal ideation: No Patient has homicidal ideation: No Renal/ Medical History: Reports: Hx Ovarian Cysts. Denies: Hx Peritoneal Dialysis GI Medical History: Reports: Hx Gastroesophageal Reflux Disease. Denies: Hx Colonoscopy, Hx Endoscopy Musculoskeletal Medical History: Reports Hx Arthritis, Reports Hx Musculoskeletal Deformity, Reports Hx Musculoskeletal Trauma Skin Medical History: Reports Hx Cellulitis Psychiatric Medical History: Reports: Hx Anxiety Past Surgical History: Reports: Hx Abdominal Surgery - Gallstones removed Review of Systems - Review of Systems Constitutional: No symptoms reported EENT: No symptoms reported Cardiovascular: No symptoms reported Respiratory: No symptoms reported Gastrointestinal: Abdominal pain, Diarrhea, Nausea, Vomiting Genitourinary: Dysuria Female Genitourinary: No symptoms reported Musculoskeletal: No symptoms reported Skin: No symptoms reported Hematologic/Lymphatic: No symptoms reported Neurological/Psychological: No symptoms reported -: Yes All other systems reviewed and negative Physical Exam - Vital signs Vitals: Temp Pulse BP Pulse Ox 98.9 F 82 120/69 98 12/25/17 20:47 12/25/17 20:47 12/25/17 20:47 12/25/17 20:47 - Notes Notes: PHYSICAL EXAMINATION: GENERAL: Well-appearing, well-nourished and in no acute distress. HEAD: Atraumatic, normocephalic. EYES: Pupils equal round and reactive to light, extraocular movements intact, conjunctiva are normal. ENT: Nares patent, oropharynx clear without exudates. Moist mucous membranes. NECK: Normal range of motion, supple without lymphadenopathy LUNGS: Breath sounds clear to auscultation bilaterally and equal. No wheezes rales or rhonchi. HEART: Regular rate and rhythm without murmurs ABDOMEN: Soft, tenderness to palpation in the epigastric, LUQ and LLQ. No rebound or guarding. Normal active bowel sounds. Female : deferred Musculoskeletal: Normal range of motion, no pitting or edema. No cyanosis. NEUROLOGICAL: Cranial nerves grossly intact. Normal speech, normal gait. Normal sensory, motor exams PSYCH: Normal mood, normal affect. SKIN: Warm, Dry, normal turgor, no rashes or lesions noted. Course - Re-evaluation Re-evalutation: 12/25/17 22:19 Labs and imaging obtained. Labs are unremarkable. Pelvic ultrasound was done. Left ovarian cyst that was seen on CT abd/pelvis is no longer present. Discussed the results with the patient. She feels comfortable with discharge home and following up with her primary care for provider this week. Instructed the patient to take her medications as directed, to follow-up with her primary care physician this week, and to return for worsening symptoms. Patient is agreeable with plan of care. - Vital Signs Vital signs: Temp Pulse Resp BP Pulse Ox 98.9 F 82 120/69 98 12/25/17 20:47 12/25/17 20:47 12/25/17 20:47 12/25/17 20:47 - Laboratory Result Diagrams: 12/25/17 20:57 12/25/17 20:57 Laboratory results interpreted by me: 12/25/17 12/25/17 20:57 21:29 Seg Neutrophils % 40.5 L Urine Urobilinogen 2.0 H Discharge - Discharge Clinical Impression: Vomiting and diarrhea Abdominal pain Qualifiers: Abdominal location: generalized Qualified Code(s): R10.84 - Generalized abdominal pain Condition: Good Disposition: HOME, SELF-CARE Instructions: Abdominal Pain ([facility]) Referrals: DAVID PALACIOS MD [ACTIVE STAFF] - Follow up as needed
[2017-12-25 21:21] LABS: ABSOLUTE BASOPHILS # (AUTO) 0.1 10^3/uL (0.0-0.2); ABSOLUTE EOSINOPHILS # (AUTO) 0.3 10^3/uL (0.0-0.6); ABSOLUTE LYMPHOCYTES (AUTO) 2.9 10^3/uL (0.5-4.7); ABSOLUTE MONOCYTES (AUTO) 0.6 10^3/uL (0.1-1.4); ABSOLUTE NEUT (AUTO) 2.6 10^3/uL (1.7-8.2); BASOPHILS % (AUTO) 1.6 % (0-2); HEMOGLOBIN 12.9 g/dL (12.0-15.5); LYMPHOCYTES % (AUTO) 44.3 % (13-45); MEAN CORPUSCULAR HGB CONC 33.9 g/dL (32.0-36.0); MEAN CORPUSCULAR VOLUME 94 fl (80-97); MONOCYTES % (AUTO) 8.6 % (3-13); PLATELET COUNT 222 10^3/uL (150-450); RED BLOOD COUNT 4.03 10^6/uL (3.72-5.28); RED CELL DISTRIBUTION WIDTH 12.5 % (11.5-14.0); SEGMENTED NEUTROPHILS % (AUTO) 40.5 % (42-78); TOTAL CELLS COUNTED % (AUTO) 100 %; WHITE BLOOD COUNT 6.5 10^3/uL (4.0-10.5)
[2017-12-25 21:27] LABS: ALANINE AMINOTRANSFERASE 19 U/L (9-52); ALBUMIN 4.2 g/dL (3.5-5.0); ALKALINE PHOSPHATASE 49 U/L (38-126); ANION GAP 13 (5-19); ASPARTATE AMINO TRANSFERASE 20 U/L (14-36); BILIRUBIN,DIRECT 0.2 mg/dL (0.0-0.4); BILIRUBIN,TOTAL 0.8 mg/dL (0.2-1.3); BLOOD UREA NITROGEN 11 mg/dL (7-20); CALCIUM 9.7 mg/dL (8.4-10.2); CARBON DIOXIDE 22 mmol/L (22-30); CHLORIDE 107 mmol/L (98-107); GLUCOSE 102 mg/dL (75-110); LIPASE 82.7 U/L (23-300); POTASSIUM 4.1 mmol/L (3.6-5.0); SODIUM 141.9 mmol/L (137-145); TOTAL PROTEIN 7.3 g/dL (6.3-8.2)
[2017-12-25 21:40] LABS: APPEARANCE,URINE SLIGHTLY-CLOUDY; BILIRUBIN,URINE NEGATIVE (NEGATIVE); COLOR,URINE YELLOW; GLUCOSE, URINE NEGATIVE (NEGATIVE); KETONES,URINE NEGATIVE (NEGATIVE); LEUKOCYTE ESTERASE,URINE NEGATIVE (NEGATIVE); NITRITE,URINE NEGATIVE (NEGATIVE); PROTEIN,URINE NEGATIVE (NEGATIVE); URINE SPECIFIC GRAVITY 1.025
--- NOTE | 2017-12-25 22:08 | RADIOLOGY REPORT (SQ) ---
EXAM DESCRIPTION: US PELVIS COMPLETED DATE/TME: 12/25/2017 21:13 CLINICAL HISTORY: 42 years, Female, L ovarian cyst- rule out torsion COMPARISON: CT 12/21/2017 TECHNIQUE: Transverse and longitudinal transvaginal sonographic images of the pelvis LIMITATIONS: None. FINDINGS: The uterus measures 9.0 x 5.2 x 6.2 cm. The endometrium measures 4 mm in thickness. The myometrium is homogenous. The right ovary measures 3.7 x 1.7 x 3.2 cm. The left ovary measures 5.2 x 2.6 x 2.7 cm. Doppler and spectral analysis with color flow was utilized. Arterial and venous flow to both ovaries. No solid adnexal mass. No free fluid. Left adnexal cyst described on CT is not appreciated on this exam. IMPRESSION: Left adnexal cyst described on CT is not appreciated on this exam. Remainder is unremarkable. 2011 [employer]- All Rights Reserved
[2017-12-25 22:28] VITALS: BP 132/76
== END 2017-12-25 22:28 | disposition home or self-care (01) ==
LOC: ER 20:24
DX: R10.84 Generalized abdominal pain (principal); R10.812 Left upper quadrant abdominal tenderness; R10.814 Left lower quadrant abdominal tenderness; R10.816 Epigastric abdominal tenderness; R19.7 Diarrhea, unspecified; R11.2 Nausea with vomiting, unspecified; R30.0 Dysuria; F17.200 Nicotine dependence, unspecified, uncomplicated; Z87.19 Personal history of other diseases of the digestive system; Z87.42 Personal history of other diseases of the female genital tract; Z88.2 Allergy status to sulfonamides
CPT/HCPCS: 99284; 96374; 96375; 36415; 83690; 85025; 81025; 80053; 81001; 76856; 93976; J3490 ×3; J2270; J2405; S0028

== ENCOUNTER → 2018-04-05 | Outpatient (CLI) | payer MEDICAID ==
[2018-04-05 13:47] LABS: ABSOLUTE BASOPHILS # (AUTO) 0.1 10^3/uL (0.0-0.2); ABSOLUTE EOSINOPHILS # (AUTO) 0.4 10^3/uL (0.0-0.6); ABSOLUTE LYMPHOCYTES (AUTO) 2.2 10^3/uL (0.5-4.7); ABSOLUTE MONOCYTES (AUTO) 0.7 10^3/uL (0.1-1.4); ABSOLUTE NEUT (AUTO) 3.1 10^3/uL (1.7-8.2); EOSINOPHILS % (AUTO) 5.7 % (0-6); HEMOGLOBIN 14.1 g/dL (12.0-15.5); MEAN CORPUSCULAR HEMOGLOBIN 32.2 pg (27.0-33.4); MEAN CORPUSCULAR HGB CONC 34.3 g/dL (32.0-36.0); MEAN CORPUSCULAR VOLUME 94 fl (80-97); MONOCYTES % (AUTO) 11.1 % (3-13); PLATELET COUNT 257 10^3/uL (150-450); RED BLOOD COUNT 4.36 10^6/uL (3.72-5.28); RED CELL DISTRIBUTION WIDTH 12.9 % (11.5-14.0); SEGMENTED NEUTROPHILS % (AUTO) 48.2 % (42-78); TOTAL CELLS COUNTED % (AUTO) 100 %; WHITE BLOOD COUNT 6.4 10^3/uL (4.0-10.5)
[2018-04-05 14:10] LABS: ANION GAP 12 (5-19); BLOOD UREA NITROGEN 11 mg/dL (7-20); CALCIUM 10.1 mg/dL (8.4-10.2); CARBON DIOXIDE 20 mmol/L (22-30); CHLORIDE 108 mmol/L (98-107); GLUCOSE 97 mg/dL (75-110); POTASSIUM 4.4 mmol/L (3.6-5.0); SODIUM 139.6 mmol/L (137-145)
--- NOTE | 2018-04-06 22:19 | EKG REPORT ---
SEVERITY:- OTHERWISE NORMAL ECG - SINUS TACHYCARDIA : Confirmed by: Ashli Stuart 06-Apr-2018 22:18:19
== END ==
LOC: OD 12:06
PROVIDERS: ATTEND Orthopaedic Surgery
DX: Z01.818 Encounter for other preprocedural examination (principal)
CPT/HCPCS: 36415; 80048; 85025; 93005; 93010

== ENCOUNTER → 2018-05-04 | Outpatient (CLI) | payer MEDICAID ==
--- NOTE | 2018-05-04 14:46 | WOMENS IMAGING REPORT ---
EXAM DESCRIPTION: BILAT SCREENING MAMMO W/CAD COMPLETED DATE/TIME: 05/04/2018 2:36 pm REASON FOR STUDY: Z12.31 ENCOUNTER FOR SCREENING MAMMOGRAM FOR MALIGNANT NEOPLASM OF BREAST Z12.31 ENCNTR SCREEN MAMMOGRAM FOR MALIGNANT NEOPLASM OF TRELL COMPARISON: 2018 TECHNIQUE: Standard craniocaudal and mediolateral oblique views of each breast recorded using digita l acquisition. LIMITATIONS: None. FINDINGS: No masses, calcifications or architectural distortion. No areas of suspicion. Read with the assistance of CAD. .[facility] - R2 [employer] Version 1.3 .[facility] - R2 Cenova Version 2.1 .[facility] - R2 Cenova Version 2.4 .[facility]2 C[employer]ova Version 2.4 .[facility] - R2 [employer] Specialist Version 9.2 IMPRESSION: NORMAL MAMMOGRAM. BIRADS 1. BREAST DENSITY: b. There are scattered areas of fibroglandular density. BIRAD: 1 NEGATIVE RECOMMENDATION: ROUTINE SCREENING COMMENT: The patient has been notified of the results by letter per SA requirements. Additional no tification policies are in place for contacting patient with suspicious or incomplete findings. Quality ID #225: The [employer] recommends an annual screening mammogram for women aged 40 years or over. This facility utilizes a reminder system to ensure that all patients receive reminder letters, and/or direct phone calls for appointments. This includes reminders for routine scr eening mammograms, diagnostic mammograms, or other Breast Imaging Interventions when appropriate. Th is patient will be placed in the appropriate reminder system. The [employer] (ACR) has developed recommendations for screening MRI of the breast s in certain patient populations, to be used in conjunction with mammography. Breast MRI surveillanc e may be appropriate for women with more than 20% lifetime risk of developing breast cancer as deter mined by genetic testing, significant family history of the disease, or history of mantle radiation f or Hodgkins Disease. ACR Practice Guidelines 2008. TECHNICAL DOCUMENTATION: FINDING NUMBER: (1) ASSESSMENT: (1) JOB ID: [id number] [employer]- All Rights Reserved Reading location - IP/workstation name: [email or web address]
== END ==
LOC: WI 14:09
PROVIDERS: ATTEND Family Medicine
DX: Z12.31 Encounter for screening mammogram for malignant neoplasm of breast (principal)
CPT/HCPCS: 77067

== ENCOUNTER 2018-05-22 15:44 | Emergency (ER) | payer MEDICAID ==
--- NOTE | 2018-05-22 15:49 | ER Document Report ---
ED Medical Screen (RME) - General Stated Complaint: HIP PAIN Time Seen by Provider: 05/22/18 15:47 Primary Care Provider: TONIA FORBES MD [Primary Care Provider] - Follow up as needed TRAVEL OUTSIDE OF THE [place] IN LAST 30 DAYS: No - HPI Patient complains to provider of: RIGHT HIP PAIN Notes: 05/22/18 15:48 PT WAS FIGHTING LAST NIGHT AND TWISTED HER RIGHT LEG. NOW WITH RIGHT POSTERIOR HIP PAIN. NO OTHER INJURY. EXAM: TENDERNESS TO PALPATION OF THE RIGHT POSTERIOR HIP. PLAN: X-RAY 05/22/18 16:00 An initial examination was made on the patient as part of the triage process, and it was determined a more comprehensive evaluation was necessary. Initial labs were ordered and patient was transferred to another provider in the ED who assumed care and finished evaluation and plan. 05/22/18 16:00 An initial examination was made on the patient as part of the triage process, and it was determined a more comprehensive evaluation was necessary. Initial labs were ordered and patient was transferred to another provider in the ED who assumed care and finished evaluation and plan. - Related Data Allergies/Adverse Reactions: Sulfa (Sulfonamide Antibiotics) Allergy (Verified 05/22/18 15:49) Past Medical History Renal/ Medical History: Reports: Hx Ovarian Cysts. Denies: Hx Peritoneal Dialysis GI Medical History: Reports: Hx Gastroesophageal Reflux Disease. Denies: Hx Colonoscopy, Hx Endoscopy Musculoskeltal Medical History: Reports Hx Arthritis, Reports Hx Musculoskeletal Deformity, Reports Hx Musculoskeletal Trauma Skin Medical History: Reports Hx Cellulitis Psychiatric Medical History: Reports: Hx Anxiety Past Surgical History: Reports: Hx Abdominal Surgery - Gallstones removed Doctor's Discharge - Discharge Referrals: TONIA FORBES MD [Primary Care Provider] - Follow up as needed
--- NOTE | 2018-05-22 16:59 | RADIOLOGY REPORT (SQ) ---
EXAM DESCRIPTION: HIP RIGHT AP/LATERAL COMPLETED DATE/TIME: 05/22/2018 4:28 pm REASON FOR STUDY: RIGHT HIP PAIN COMPARISON: None. NUMBER OF VIEWS: Two views. TECHNIQUE: AP pelvis and additional frog-leg view of the right hip. LIMITATIONS: None. FINDINGS: MINERALIZATION: Normal. RIGHT HIP: No fracture or dislocation. No worrisome bone lesions. LEFT HIP: No fracture or dislocation. No worrisome bone lesions. PUBIS AND ISCHIUM: No fracture. PELVIS: No fracture. SACRUM: No fracture or dislocation. No worrisome bone lesions. LOWER LUMBAR SPINE: No fracture or dislocation. No worrisome bone lesions. No significant disc disea se. SOFT TISSUES: No findings. OTHER: No other significant finding. IMPRESSION: NEGATIVE STUDY OF THE RIGHT HIP. NO RADIOGRAPHIC EVIDENCE OF ACUTE INJURY. TECHNICAL DOCUMENTATION: JOB ID: [id number] [employer]- All Rights Reserved Reading location - IP/workstation name: [email or web address]
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
[2018-05-22 17:40] VITALS: BP 119/79
== END 2018-05-22 17:43 | disposition home or self-care (01) ==
LOC: ER 15:44
DX: S76.911A Strain of unspecified muscles, fascia and tendons at thigh level, right thigh, initial encounter (principal); M25.551 Pain in right hip; X50.1XXA Overexertion from prolonged static or awkward postures, initial encounter; F17.210 Nicotine dependence, cigarettes, uncomplicated; E11.9 Type 2 diabetes mellitus without complications
CPT/HCPCS: 99283; 99406

== ENCOUNTER → 2018-06-13 | Outpatient (CLI) | payer MEDICAID ==
[2018-06-13 10:56] LABS: ABSOLUTE EOSINOPHILS # (AUTO) 0.1 10^3/uL (0.0-0.6); ABSOLUTE LYMPHOCYTES (AUTO) 1.7 10^3/uL (0.5-4.7); ABSOLUTE MONOCYTES (AUTO) 0.4 10^3/uL (0.1-1.4); ABSOLUTE NEUT (AUTO) 2.1 10^3/uL (1.7-8.2); BASOPHILS % (AUTO) 0.6 % (0-2); EOSINOPHILS % (AUTO) 2.4 % (0-6); HEMATOCRIT 39.6 % (36.0-47.0); HEMOGLOBIN 13.1 g/dL (12.0-15.5); LYMPHOCYTES % (AUTO) 38.9 % (13-45); MEAN CORPUSCULAR HEMOGLOBIN 31.7 pg (27.0-33.4); MEAN CORPUSCULAR HGB CONC 33.2 g/dL (32.0-36.0); MEAN CORPUSCULAR VOLUME 96 fl (80-97); MONOCYTES % (AUTO) 8.7 % (3-13); PLATELET COUNT 249 10^3/uL (150-450); RED BLOOD COUNT 4.15 10^6/uL (3.72-5.28); RED CELL DISTRIBUTION WIDTH 12.9 % (11.5-14.0); SEGMENTED NEUTROPHILS % (AUTO) 49.4 % (42-78); TOTAL CELLS COUNTED % (AUTO) 100 %; WHITE BLOOD COUNT 4.3 10^3/uL (4.0-10.5)
[2018-06-13 11:15] LABS: ANION GAP 11 (5-19); BLOOD UREA NITROGEN 12 mg/dL (7-20); CALCIUM 9.4 mg/dL (8.4-10.2); CARBON DIOXIDE 24 mmol/L (22-30); CHLORIDE 106 mmol/L (98-107); GLUCOSE 88 mg/dL (75-110); POTASSIUM 4.4 mmol/L (3.6-5.0); SODIUM 140.6 mmol/L (137-145)
--- NOTE | 2018-06-13 17:42 | EKG REPORT ---
SEVERITY:- NORMAL ECG - SINUS RHYTHM : Confirmed by: Aida Alfaro MD 13-Jun-2018 17:41:43
== END ==
LOC: OD 09:53
PROVIDERS: ATTEND Orthopaedic Surgery
DX: Z01.812 Encounter for preprocedural laboratory examination (principal); Z87.891 Personal history of nicotine dependence; E11.9 Type 2 diabetes mellitus without complications; G56.01 Carpal tunnel syndrome, right upper limb
CPT/HCPCS: 36415; 80048; 85025; 93005; 93010

== ENCOUNTER 2020-03-03 20:42 | Emergency (ER) | payer MEDICAID ==
--- NOTE | 2020-03-03 22:33 | ER Document Report ---
HPI - HPI Patient complains to provider of: sore throat, fatigue Time Seen by Provider: 03/03/20 21:41 Pain Level: 5 Context: 44-year-old female past medical history significant for diabetes, insomnia, bipolar disease presents to the emergency room complaining of a sore throat, swollen glands are and a headache for the past 2 days. States hurts to swallow. No fevers. Took Advil today with minimal relief. Denies any ill contacts. No COVID-19 exposure. Patient states she also does take Metformin for her diabetes but hemoglobin A1c's were back to normal stop taking her meds several months ago. Does not monitor her blood sugars at home. States she is feeling a little fatigued tonight denies chest pain, shortness of breath, no difficulty breathing. Associated Symptoms: None Exacerbated by: Other - Swallowing Relieved by: Denies Similar symptoms previously: No Recently seen / treated by doctor: No - ROS Systems Reviewed and Negative: Yes All other systems reviewed and negative - CONSTITUTIONAL Constitutional: DENIES: Fever - EENT EENT: REPORTS: Sore Throat, Congestion - NEURO Neurology: REPORTS: Headache - GASTROINTESTINAL Gastrointestinal: DENIES: Abdominal Pain, Nausea, Patient vomiting - URINARY Urinary: DENIES: Dysuria - REPRODUCTIVE Reproductive: DENIES: : - DERM Skin Color: Normal, [place] Skin Problems: None Past Medical History - General Information source: Patient - Social History Smoking Status: Current Every Day Smoker Frequency of alcohol use: None Drug Abuse: None Family History: CAD, COPD, CVA, Hyperlipidemia, Hypertension, Malignancy Endocrine Medical History: Reports: Hx Diabetes Mellitus Type 2 Renal/ Medical History: Reports: Hx Ovarian Cysts. Denies: Hx Peritoneal Dialysis GI Medical History: Reports: Hx Gastroesophageal Reflux Disease. Denies: Hx Colonoscopy, Hx Endoscopy Musculoskeletal Medical History: Reports Hx Arthritis, Reports Hx Mu sculoskeletal Deformity, Reports Hx Musculoskeletal Trauma Skin Medical History: Reports Hx Cellulitis Psychiatric Medical History: Reports: Hx Anxiety Past Surgical History: Reports: Hx Abdominal Surgery - Gallstones removed Vertical Provider Document - CONSTITUTIONAL Agree With Documented VS: Yes Exam Limitations: No Limitations General Appearance: Mild Distress Notes: GENERAL: Mild acute distress, non-toxic appearance. HEAD: Normal with no signs of head trauma. EYES: PERRLA, EOMI, conjunctiva normal, no discharge. EARS: Hearing grossly intact. Tympanic membranes intact bilaterally without any erythema or bulging. Bilateral outer ear canals without erythema or swelling. NOSE: Normal. Turbinates are not erythematous, clear discharge is noted. Sinuses are nontender to palpation. THROAT: Oropharynx is normal. Positive for pharyngeal erythema, no exudate. No tonsillar enlargement. NECK: Normal range of motion, no tenderness, supple, no lymphadenopathy, No adenopathy, no JVD. Negative Meningismus, Negative brudzzinski, Negative Kernig's CHEST: Clear breath sounds bilaterally. No wheezes, rales, or rhonchi. CARDIAC: Regular rate and rhythm. S1 and S2, without murmurs, gallops, or rubs. VASCULAR: No Edema. Peripheral pulses normal and equal in all extremities. ABDOMEN: Normal and soft with no tenderness, no masses or pulsatile masses. GASTROINTESTINAL: Bowel sounds normal GENITOURINARY: Normal, No tenderness LYMPATHTIC: No lymphadenopathy noted. MUSCULOSKELETAL: Good range of motion of all major joints. Extremities without clubbing, cyanosis or edema. NEUROLOGICAL: Alert and oriented x 3. No focal sensory or strength deficits. Speech normal. Follows commands appropriately. PSYCHIATRIC: Normal Affect, judgement and mood. SKIN: Normal appearance with no rashes or lesions. - INFECTION CONTROL TRAVEL OUTSIDE OF THE [place] IN LAST 30 DAYS: No Course - Re-evaluation Re-evalutation: 03/03/20 22:31 Patient is resting comfortably she is afebrile, she is nontoxic-appearing, she is able to tolerate p.o. fluids. Patient's Accu-Chek was 85 she was given juice. States her fatigue has improved. Reviewed negative rapid strep results with patient. She was counseled that she will be notified if her throat culture comes back needing any additional treatment. She was encouraged to push fluids. Take Tylenol as needed for pain. Follow-up with your primary care physician if not improving in 2 to 3 days. Patient was given strict return to the emergency room guidelines. Return for any new or worsening symptoms. All questions were answered. Patient verbalized understanding and agrees with plan of care. - Vital Signs Vital signs: Temp Pulse Resp BP Pulse Ox 98.3 F 80 16 128/83 H 98 03/03/20 21:07 03/03/20 21:07 03/03/20 21:07 03/03/20 21:07 03/03/20 21:07 - Laboratory Results Critical Laboratory Results Reviewed: No Critical Results - Radiology Results Critical Radiology Results Reviewed: No Critical Results Discharge - Discharge Clinical Impression: Acute pharyngitis Qualifiers: Pharyngitis/tonsillitis etiology: unspecified etiology Qualified Code(s): J02.9 - Acute pharyngitis, unspecified Condition: Stable Disposition: HOME, SELF-CARE Instructions: Sore Throat ([facility]) Additional Instructions: Push fluids, Tylenol as needed for pain. Follow-up with primary care physician if not improving in 2 to 3 days. Return to the emergency room for any new or worsening symptoms. Referrals: JAMEEL CHANEL, [Primary Care Provider] - Follow up as needed
[2020-03-03 22:39] VITALS: BP 138/72
== END 2020-03-03 22:37 | disposition home or self-care (01) ==
LOC: ER 20:42
DX: J02.9 Acute pharyngitis, unspecified (principal); R53.83 Other fatigue; F17.200 Nicotine dependence, unspecified, uncomplicated; E11.9 Type 2 diabetes mellitus without complications; Z79.84 Long term (current) use of oral hypoglycemic drugs
CPT/HCPCS: 82962; 87070; 87880; 99283